=== PATIENT | male | born 1955 | race Caucasian/White ===

== ENCOUNTER 2024-12-14 08:23 | Day surgery (SDC) | payer MEDICARE, OTHER, SELFPAY ==
[2024-12-13 14:37] VITALS: BMI 26.9
[2024-12-14 09:44] VITALS: BP 146/85; PULSE 48; RESP 16; TEMP 36.4; O2SAT 97
[2024-12-14] MEDS: LACTATED RINGERS 1000ML 1,000 ML 50 ML IV (10:04)
--- NOTE | 2024-12-14 10:06 | P.PNANES_ITS ---
[facility] Disclaimer: The information contained in this section may have been updated after the patient was seen, as this information can be updated by other users. Medical History (Updated 12/14/24 @ 09:50 by Ruby Escalante RN) History of COVID-19 History of gastroesophageal reflux (GERD) Hyperlipidemia Inguinal hernia bilateral, non-recurrent Cholecystitis Benign prostatic hyperplasia Surgical History (Updated 12/14/24 @ 09:50 by Ruby Escalante RN) History of cholecystectomy History of left hip hemiarthroplasty Family History Other Family history of myocardial infarction Social History (Updated 12/14/24 @ 09:50 by Ruby Escalante RN) Smoking Status: Never smoker alcohol intake: current substance use type: denies use current occupational status: retired Travel in the last 8 weeks?: None caffeine: Yes [facility] Anesthesia Checklist Patient Identification Patient Identification: Arm Band Structural Data Admitted From: Home Planned Operative Procedure/s: Colonoscopy Consent for Planned Operative Procedure(s) Verified: Yes Verified Documents: Surgical Consent and History and Physical NPO Status Verified Time NPO: 00:00 Additional verifications Anesthesia Reactions: No Airway Assessment Mallampati Score:: Class II C-Spine Mobility Assessed: Yes TMJ Mobility Assessed: Yes Dentition: Good Dentition Neurological Assessment Level of Consciousness: Awake, Alert and Appropriate Anesthesia Plan Anesthesia Risk discussed: Yes Anesthesia Plan: Verified ASA Class: II Anesthesia Type: MAC
--- NOTE | 2024-12-14 10:08 | EXP.HP ---
History of Present Illness *Admission Date: 12/14/24 *Reason for visit:: Personal history of adenomatous colon polyps *History of present illness: Mr. Devine is a 69-year-old gentleman who is here for surveillance colonoscopy secondary to a personal history of adenomatous colon polyps. The examination is deemed medically necessary for surveillance colonoscopy. The patient has been seen, interviewed and examined prior to the procedure by both myself and the anesthesia provider. [facility] Disclaimer: The information contained in this section may have been updated after the patient was seen, as this information can be updated by other users. Medical History (Updated 12/14/24 @ 10:11 by Cyrus Alcala II, MD) History of COVID-19 History of gastroesophageal reflux (GERD) Hyperlipidemia Inguinal hernia bilateral, non-recurrent Cholecystitis Benign prostatic hyperplasia Surgical History (Updated 12/14/24 @ 09:50 by Ruby Escalante RN) History of cholecystectomy History of left hip hemiarthroplasty Family History Other Family history of myocardial infarction Social History (Updated 12/14/24 @ 09:50 by Ruby Escalante RN) Smoking Status: Never smoker alcohol intake: current substance use type: denies use current occupational status: retired Travel in the last 8 weeks?: None caffeine: Yes Review of Systems Review of Systems Review of systems (narrative): Negative *Cardiovascular Comments: Negative *Gastrointestinal Comments: Negative *Genitourinary Comments: Negative *Musculoskeletal Comments: Negative *Neurologic Comments: Negative Meds Home Medications and Allergies Home Medications ?Medication ?Instructions ?Recorded ?Confirmed ?Type sodium,potassium,mag sulfates 17.5 See Rx Instructions PO .COMPLEX 11/30/24 Rx gram-3.13 gram-1.6 gram oral soln #354 mL (Suprep Bowel Prep Kit) finasteride 1 mg tablet 5 mg PO DAILY 12/13/24 12/14/24 History simvastatin 20 mg tablet 20 mg PO DAILY 12/13/24 12/14/24 History New Prescriptions to Start Prescriptions: Allergies Allergy/AdvReac Type Severity Reaction Status Date / Time No Known Allergies Allergy Verified 12/14/24 09:41 Exam Data for Last 24 hours Vital signs and Labs for Last 24 Hours: Temp Pulse Resp BP Pulse Ox O2 Del Method 97.5 F L 48 L 16 146/85 H 97 Room Air 12/14/24 09:44 12/14/24 09:44 12/14/24 09:44 12/14/24 09:44 12/14/24 09:44 12/14/24 09:44 I & O for Last 24 hours: Intake & Output 12/11/24 12/12/24 12/13/24 12/14/24 23:59 23:59 23:59 23:59 Weight 210 lb *Routine HEENT Exam Head: Present normocephalic Eye: Present EOMI and PERRL ENT: Present mucous membranes moist *Routine Neck Exam Neck: Present supple *Routine Respiratory Exam Respiratory: Present CTA bilaterally *Routine Cardiovascular Exam Cardiovascular: Present RRR *Routine Abdominal Exam Abdominal: Present soft and normoactive bowel sounds; Absent tenderness *Routine Rectal Exam Rectal:: deferred *Routine Genitalia Exam Genitalia:: deferred *Routine Extremities Exam Extremities: Absent cyanosis, clubbing or edema *Routine Skin Exam Skin: Present warm; Absent rash *Routine Neurological Exam Neurological: Present alert and oriented X3 Assessment and Plan *Assessment and plan (1) Personal history of adenomatous and serrated colon polyps: Status: Acute Category: Medical Code(s): Z86.0101 - Personal history of adenomatous and serrated colon polyps Plan A/P: 1. Personal history of adenomatous colon polyps with last colonoscopy in June 2019 (2 adenomatous polyps removed) is the preprocedural diagnosis. The patient will be anesthetized/sedated using MAC sedation. The patient has been seen and examined. Cardiac and lung assessment prior to the examination is stable. Proceed with planned surveillance colonoscopy.
--- NOTE | 2024-12-14 10:24 | HMH.PROCNOTE ---
[facility] Procedure Note Date: 12/14/24 Time: 10:41 Procedure Note:: Colonoscopy Procedure Report: Colonoscopy with cold snare polypectomy Endoscopist: Cyrus Alcala II, MD Referring physician: Mtat Viveros MD, [facility], [facility] [facility] [place] [address] Date of Procedure: December 14, 2024 Equipment: Olympus 190 variable stiffness pediatric colonoscope Sedation: MAC sedation Indication: Mr. Devine is a 69-year-old gentleman who is here for follow-up surveillance colonoscopy. The patient did have a colonoscopy in June 2019 and had 2 polyps (tubular adenomas x 2) removed. He reports no abdominal pain, weight loss, change in his bowel habits or rectal bleeding. He reports no family history of colon cancer. Procedure: Prior to the procedure, a history and physical exam was performed, and patient's medications and allergies were reviewed. The risks, benefits and alternatives of the sedation and procedure were discussed with the patient. All questions were answered and informed consent was obtained. The patient was brought to the procedure room. Patient identification and proposed procedure were verified by the physician and the nurse. The patient was placed in a left lateral decubitus position and the scope was passed under direct vision. Throughout the procedure, the patient's blood pressure, pulse, and oxygen saturations were monitored continuously. The colonoscopy was accomplished without difficulty. The patient tolerated the procedure well. Findings: On digital rectal examination there was normal rectal tone. There were no external hemorrhoids. The colonoscope was introduced through the anal canal to the rectum and advanced to the cecum. The ileocecal valve and appendiceal orifice were identified. The scope was advanced a short distance into the ileum which appeared grossly normal. The scope was then withdrawn into the colon. There were 5 polyps (transverse x 2 (3 and 4 mm), descending x 2 (4 and 5 mm) and sigmoid x 1 (3 mm)). These were all removed via cold snare polypectomy. The remaining cecum, ascending and transverse colon and mucosa were grossly normal. There were scattered diverticuli throughout the descending and sigmoid colon (LEFT colon). The rectum itself was normal. Upon retroflexion within the rectum there were grade 2-3 internal hemorrhoids. The preparation was excellent throughout with [place] Preparation Score of 9. The cecal time was 14 minutes. Impression: 1. Diminutive colonic polyps x 5 2. Left-sided diverticulosis 3. Grade 2-3 internal hemorrhoids Plan: I will follow-up the polyp histology and recommend repeat surveillance colonoscopy again in 5 years. I would encourage bulking psyllium fiber supplementation on a long-term daily maintenance basis.
[2024-12-14 10:46] VITALS: BP 98/63; PULSE 77; RESP 18; TEMP 36.3; O2SAT 96
[2024-12-14 10:56] VITALS: BP 102/69; PULSE 62; RESP 17; O2SAT 96
[2024-12-14 11:06] VITALS: BP 114/74; PULSE 62; RESP 17; O2SAT 96
[2024-12-14 11:16] VITALS: BP 120/71; PULSE 73; RESP 18; O2SAT 98
== END 2024-12-14 11:30 | disposition home or self-care (01) ==
PROVIDERS: Visit Provider Internal Medicine Gastroenterology
PROC: 0DJD8ZZ Inspection of Lower Intestinal Tract, Via Natural or Artificial Opening Endoscopic (ICD-10-PCS; CPT 45378; principal; 2024-12-14 10:00)
DX: D12.4 Benign neoplasm of descending colon (principal); K57.30 Diverticulosis of large intestine without perforation or abscess without bleeding; K64.1 Second degree hemorrhoids; K64.2 Third degree hemorrhoids; Z86.0101 Personal history of adenomatous and serrated colon polyps; K21.9 Gastro-esophageal reflux disease without esophagitis; E78.5 Hyperlipidemia, unspecified; N40.0 Benign prostatic hyperplasia without lower urinary tract symptoms; Z79.899 Other long term (current) drug therapy
CPT/HCPCS: 45385; 88305; J7120